=== PATIENT | female | born 1965 | race Caucasian/White ===

== ENCOUNTER → 2020-04-28 11:19 | Outpatient (CLI) | payer OTHER, SELFPAY ==
[2020-04-30 12:53] LABS: Cancer Antigen 125 24.2 U/mL (0.0-38.1)
== END ==
PROVIDERS: Visit Provider Obstetrics & Gynecology
DX: N85.8 Other specified noninflammatory disorders of uterus (principal); N85.2 Hypertrophy of uterus
CPT/HCPCS: 36415; 86304

== ENCOUNTER 2020-06-07 07:23 | Inpatient (IN) | payer SELFPAY, OTHER ==
--- NOTE | 2020-06-02 10:34 | EKG12_ITS ---
Test Reason : PREOP Blood Pressure : / mmHG Vent. Rate : 075 BPM Atrial Rate : 075 BPM P-R Int : 162 ms QRS Dur : 084 ms QT Int : 390 ms P-R-T Axes : 027 -14 033 degrees QTc Int : 435 ms Normal sinus rhythm Normal ECG Confirmed by DARIEL BOWEN ([id number]), editor farm journal BIBIANA RIVERA ([id number]) on 06/03/2020 2:37:54 PM Referred By: Blue Kirkpatrick Confirmed By:DARIEL BOWEN
[2020-06-02 10:47] LABS: Hemoglobin 14.9 g/dL (12.0-15.0); Mean Corp Hgb Conc 34.7 g/dL (32-36); Mean Corpuscular Volume 86.7 fL (81-99); Mean Platelet Vol. 9.2 fl (6.2-12.0); Platelet Count 241 K/mm3 (150-450); RBC Distribution Width CV 12.3 % (11.6-14.6); RBC Distribution Width SD 38.7 fl (35.1-43.9); Red Blood Count 4.96 M/mm3 (4.2-5.4); White Blood Count 5.9 K/mm3 (4.4-11.0)
[2020-06-02 10:57] LABS: Prothrombin Time (Protime)PT. 12.8 SECONDS (11.7-14.9)
[2020-06-02 10:58] LABS: Partial Thromboplast Time 27.4 Seconds (24.1-36.2)
[2020-06-02 11:26] LABS: AST(SGOT) 64 U/L (15-37); Alanine Aminotransfer ALT/SGPT 100 U/L (13-56); Albumin, Serum 3.8 g/dL (3.2-5.0); Alkaline Phosphatase 59 U/L (45-117); Anion Gap 3 (5-15); BUN 12 mg/dL (7-18); BUN/Creat Ratio 16.8 RATIO (10-20); Calcium,Total 9.2 mg/dL (8.5-10.1); Chloride 105 mmol/L (98-107); Creatinine, Serum 0.71 mg/dL (0.55-1.02); EST Glomerular Filtration Rate 91 mL/min (>60); Est Glom Filt Rate - Afr Amer 110 mL/min (>60); Globulin 3.9 g/dL (2.2-4.2); Glucose 112 mg/dL (74-106); Potassium 3.6 mmol/L (3.5-5.1); Protein, Total 7.7 g/dL (6.4-8.2); Sodium Level 138 mmol/L (136-145)
--- NOTE | 2020-06-06 18:37 | HP.PCM_ITS ---
History and Physical Date of Admission: 06/07/20 Surgical History and Physical Eugenia Bustos, a 54 year old female 0 0 0 0 0, presents for FRANCES/BSO on June 07, 2020 at 7:30. -- Large Symptomatic Uterine Fibroids -- Large Heterogeneous Uterus with Mass which began CT Scan 11-09-19. Eugenia claims it started gradually and has been present several months. It occurs all the time. It is located in the lower abdomen. Eugenia characterizes the quality fullness feeling. Severity is moderate and not improving. MEDICATIONS HISTORY: Patient is also takin. No Meds ALLERGIES: No Known Allergies Infections - Chicken pox and Measles Illnesses - no serious past illnesses Accidents - None Hospitalizations - surgery Review of Systems: GENERAL - Denies fever, or chills SKIN - Denies skin changes EYES - Denies visual changes EARS - Denies difficulty hearing NOSE - Denies nasal congestion or bleeding MOUTH - Denies sore throat or difficulty swallowing NECK - Denies pain or swelling RESPIRATORY - Denies shortness of breath or wheezing CARDIOVASCULAR - Denies palpitations or chest pain GASTROINTESTINAL - Denies nausea, vomiting, diarrhea, constipation GENITOURINARY - Denies dysuria, frequency of urination, incontinence of urine MUSCULOSKELETAL - Denies joint or muscle pain NEUROLOGICAL - Denies localized numbness or weakness PSYCHIATRIC - Denies depression or anxiety ENDOCRINE - Denies heat or cold intolerance, weight loss or gain HEMATO-IMMUNOLOGIC - Denies excessive bleeding with cuts SOCIAL HISTORY: Alcohol Use - None Smoking - Never Diet - no special diet Lifestyle - single Exercise - active work Seat Belt Use - most of the time Employer - [employer] Job Description - Elementary Spanish Teacher Illicit Drug Use - None Sexual Activity - sexually inactive Control - Not active FAMILY HISTORY: nc MENSTRUAL HISTORY: LMP Known?- DefiniteAmount/Duration - 6 days, Regularity - Irregular, Frequency - variable days, LMP - 03/20/20, Age Onset Menarche - 14 PAST PREGNANCIES: Total Pregnancies - 0; Full Term Pregnancies - 0; Premature - 0; Abortions, Induced - 0; Abortions, Spontaneous - 0; Ectopics - 0; Multiple Births - 0; Living Children - 0 SURGICAL HISTORY: 1. 10/20/2019 Hernia Repair ; Deangelo Tran 2. T and A, 1992 PHYSICAL EXAM BP- 126/80 Sitting, Right arm, large cuff Weight- 204.72871 lbs Height- 60 inch BMI:39.92 CONSTITUTIONAL - NAD, well nourished, and well developed SKIN - No rash, lesions, or ulcers HEENT - Normocephalic, PERRLA, EOMI NECK - No nodes, no nuchal rigidity and thyroid normal size and texture LYMPH NODES - Palpation of lymph nodes in neck and groins within normal limits LUNGS - CTA x2 without wheezes, crackles or rales CARDIAC - Regular rate and rhythm without rubs, murmurs, or gallops ABDOMEN - Without hepatosplenomegaly, distention, masses, rebound, or guarding; normal bowel sounds; no hernias and uterus to 28 week size EXTREMITIES - No edema or calf tenderness NEUROLOGICAL - Cranial nerves II-XII grossly intact PSYCHIATRIC - A and O to time, place, person, mood and affect ASSESSMENT/PLAN: 1. Hypertrophy Of Uterus, Leiomyoma Of Uterus and Unspecified Large and symptomatic. Reviewed CT scan suggesting fibroids. U/S also confirms. CA-125 OK. Discussed options and plan to proceed with FRANCES/BSO. Discussed RBAs and all questions answered. Plan midline incision thru hernia mesh.
[2020-06-07] VITALS (12 sets, daily range): BP systolic 95–151; BP diastolic 41–99; PULSE 57–85; RESP 16–20; TEMP 36.6–36.9; O2SAT 94–98; BMI 40.3
[2020-06-07] MEDS: Lactated Ringers 1,000 ML 100 ML IV ×2 (06:10→09:00)
[2020-06-07 06:12] LABS: Internal QC Validated? YES +Cl - CLEAR BKGD; Pregnancy, Urine Negative Negative
--- NOTE | 2020-06-07 07:30 | HYST_PTH ---
PATIENT: VISHNU WHITE LOC: [facility]3 U#:[id number] AGE/SX: 54/F ROOM: [facility]316 RE06/07/[address]: Dr. Blue Kirkpatrick MD : [id number] BED: 1 DIS: 06/08/2020 SPEC #: [id number] RECD: 06/07/20 09:41 STATUS: RADHA REChris #: [id number] ROBLES: 06/07/20 07:[address]: Blue Kirkpatrick DEPT: SURGICAL PATHOLOGY RECD BY: Carter Padron ENTERED: 06/07/20 10:09 SP TYPE: HYSTERECT OTHR DR: Dr. Ronald Barton MD Tissues: Uterus, NOS Procedures: Surgery Specimen Level V HEADER OPERATION: Hysterectomy, FRANCES, salpingo-oophorectomy PRE-OP DIAGNOSIS: Hypertrophy of uterus, leiomyoma of uterus TISSUE SUBMITTED: Uterus and bilateral fallopian tubes and ovaries MICROSCOPIC DIAGNOSIS Uterus, hysterectomy: Cervix - nabothian cysts. Endometrium - weakly proliferative endometrium. Myometrium - leiomyomas. Right and left ovaries - corpus luteal cyst and corpora albicantia. Right and left fallopian tubes - benign paratubal cysts. AM:dori 06/08/20 MICROSCOPIC DESCRIPTION Slides are reviewed. GROSS DESCRIPTION Received in fixative is one container labeled with the patient's name and designated uterus and bilateral fallopian tubes and ovaries. The specimen consists of a hysterectomy specimen consisting of markedly enlarged uterus with attached bilateral fallopian tubes and ovaries and also a detached portion of the lower uterus. The enlarged portion of the uterus measures 30 x 27 x 14 cm. The specimen is markedly distorted. Orientation could not be made. The detached portion of the uterus/cervix measures 4 x 2 x 2 cm. The entire specimen weighs 3850 gm. The endocervical/endometrial canal measures up to 3.5 cm in length and it is unremarkable. The endometrial cavity is compressed to one side and measures 4 cm in width and up to 4 cm in length. The endometrium is méndez, glistening and unremarkable and measures 0.1 cm in thickness. Sections of the uterine wall reveal multiple nodular masses. The largest mass is present at the fundus and measures up to 30 cm in greatest dimension. Sections of these masses reveal méndez whorled cut surfaces without areas of hemorrhage, necrosis or cystic degeneration. The uninvolved uterine wall measures up to 6 cm in thickness. Because of the distortion, right and left fallopian tubes could not be oriented. One of the fallopian tubes measures 8 cm in length and 0.5 cm in diameter. A paratubal cyst is noted measuring 1 cm in diameter. The second fallopian tube is similar appearance to first one and measures 8.5 cm in length and 0.5 cm in diameter. The fimbrial end is identified. A paratubal cyst is noted measuring 1 cm in greatest dimension. Sectioning of fallopian tubes reveal unremarkable cut surfaces. No tubo-ovarian adhesions are identified on both sides. The second soft to cystic ovary measures 4.5 x 3 x 1.5 cm and reveals a cyst filled with clear fluid measuring 2.5 cm in greatest dimension. Stone Setter Apprentice sections are submitted in 13 cassettes as follows: 1 & 2 - cervix/ lower uterine segment, 3-6 - uterine wall including endometrium, 7 - smaller nodular mass, 8 - second largest nodular mass, 9 & 10 - largest nodular mass, 11 - one fallopian tube and adjacent ovary, 12??second fallopian tube and adjacent ovary, 13 - second ovary with cyst. / CRISS:dori 06/07/20 TC:1 CPT: 63215
--- NOTE | 2020-06-07 07:30 | OP.PCM_ITS ---
Report of Operation Date of Procedure: 06/07/20 Pre-Operative Diagnosis: Large Symptomatic Uterine Fibroids Post-Operative Diagnosis: Large Symptomatic Uterine Fibroids Surgery/Procedure Performed:: Total Abdominal Hysterectomy and Bilateral Salpingo-Oophorectomy Description of Surgical Findings:: 25 cm uterus and calculated fibroid with normal-appearing fallopian tubes and ovaries. Uterus and fibroid weighed over 9 pounds. community health navigator: Delmar Bone Type of Anesthesia:: General - Endotracheal Anesthesiologist: Hannah Zazueta Specimen's removed: Uterus and bilateral fallopian tubes and ovaries Drains: Helm to straight drain Estimated Blood Loss (mL): 450 cc Fluids Replaced: Crystalloid Description of Procedure: Surgeon: Blue Kirkpatrick MD, FACOG Indications: This is a 54-year-old patient who his been having problems with lower abdominal pressure and discomfort. CT scan showed approximately a 25 to 28 cm size uterus and fibroid. Ultrasound was confirmatory. Ca-125 was normal. Given this the patient desires that we proceed with the above procedure. She has been counseled regarding the risk and indications of this procedure including the possibility of bleeding, infection, and injury to surrounding structures such as bowel bladder. All questions were answered. Procedure: Patient was taken to the operating room where after induction of general anesthesia she was prepped and draped in the usual sterile fashion. A F oley catheter was placed. The abdomen was entered through a midline incision to approximately 2 cm above the umbilicus and peritoneal cavity was entered bluntly. [place] retractor was placed. Uterus was delivered and round ligaments were identified and ligated with 0 Vicryl suture. Infundibulopelvic ligaments were ligated x2 with 0 Vicryl suture. A bladder flap was developed and progressive bites were then taken down on either side of the uterine cervix ligating each pedicle with 0 Vicryl suture. Final bites across the vaginal cuff incorporated the uterosacral ligaments into the vaginal cuff using 0 Vicryl suture and multiple [id number] sutures were placed across the vaginal cuff although it should be noted that a portion of the cervix may have remained due to the depth of the pelvis. Vaginal cuff and pelvic sidewall pedicles were oversewn where necessary to achieve hemostasis. Pelvis was copiously irrigated removing all clot. Some Pilo was placed across the pedicles to help with postoperative hemostasis due to some oozing. [place] retractor was removed and rectus abdominis muscles were reapproximated in the midline with interrupted 0 Prolene suture interrupted or [id number] due to a mesh which had been previously placed. Subcutaneous tissue was copiously irrigated with saline solution before closing with 3-0 Vicryl suture in 2 layers. 3-0 Vicryl suture subcuticular interrupted was then used followed by running 3-0 Monocryl suture to reapproximate skin edges. Steri-Strips were placed across the incision as well as a Mepilex dressing. Abdominal binder was placed. Patient tolerated the procedure well and was taken to recovery room in satisfactory condition; sponge instrument and needle counts were all reportedly correct. Estimated blood loss for the case was 450 cc. Cefotetan g IV was given prior to beginning the operative procedure. There were no apparent complications of the surgery. Specimen to pathology was uterus and bilateral fallopian tubes and ovaries. Grafts/Implants Used: No - Complications None - Admit VTE Documentation VTE Present on Admission: Yes VTE Mechan Device Prophylaxis: SCD's VTE Pharm Prophylaxis ordered?: Yes
--- NOTE | 2020-06-07 07:34 | DCINST_ITS ---
Discharge Diet: No Restrictions Discharge Activity: Return to Normal Activity - do what you feel comfortable, but do not over do it. You may climb stairs, just use caution and hold the railing., May Not Drive - for a few days or while taking narcotic pain medications., May Shower, May Take a Tub Bath May resume sexual activity in: 6 weeks - nothing in the vagina. Lifting Restrictions: 25 pounds for 6 weeks. Call your doctor if your incision/area has: Continuous Slow Oozing, Sudden Increased Bleeding, Increased Pain/ Swelling, Increased Redness, Foul Smelling Discharge Call your doctor if you observe: Fever of 101 or Higher, Inability to urinate, Inability to have a bowel movement, Using more than one pad per hour, - - Some vaginal bleeding may be noted for up to 4-8 weeks. Cleanse incision/area with: - - Let the soapy water run over your incision, rinse and pat dry. Additional Dressing/Incision Instructions:: The white strips (Steri Strips) on your incision will fall off on their own. Allergies/Adverse Reactions: Allergies No Known Allergies Allergy (Verified 06/07/20 05:56) Medications to take at Discharge Docusate Sodium [Colace] 100 mg PO BID PRN PRN #60 cap 06/07/20 Oxycodone [Oxyir] 5 mg PO Q6H PRN PRN 7 Days #20 tablet 06/07/20 The following prescriptions were given: Docusate Sodium [Colace] 100 mg PO BID PRN PRN #60 cap PRN Reason: Constipation Transmission Status: Pending to [facility] Oxycodone [Oxyir] 5 mg PO Q6H PRN PRN 7 Days #20 tablet PRN Reason: Pain Score 6-10/10 Transmission Status: Sent to [facility] Primary Care Physician: Ronald Barton MD [Primary Care Provider] - Test Results: Test results from this visit will be discussed in further detail at your follow- up appointment, if applicable. Please Follow Up With: Blue Kirkpatrick MD - [phone] When: in 2 weeks, please call to make an appointment.
[2020-06-07] MEDS: Dextrose 5%-Lactated Ringers 1,000 ML 150 ML IV ×2 (12:23→22:58)
[2020-06-07] MEDS: Ketorolac 30 MG/ML Syringe IV ×3 (12:49→23:00)
[2020-06-07] MEDS: 0.9% Saline Lock 10 ML Syringe IV (12:51)
[2020-06-07] MEDS: Enoxaparin 40 MG/0.4 ML Syringe SC (17:40)
[2020-06-08 02:27] VITALS: BP 108/58; PULSE 69; RESP 16; TEMP 36.8; O2SAT 94
[2020-06-08] MEDS: Ketorolac 10 MG Tablet PO (05:55)
[2020-06-08] MEDS: 0.9% Saline Lock 10 ML Syringe IV (05:55)
[2020-06-08] MEDS: Enoxaparin 40 MG/0.4 ML Syringe SC (05:56)
[2020-06-08 05:59] VITALS: BP 109/55; PULSE 64; RESP 16; TEMP 36.9; O2SAT 94
[2020-06-08 06:21] LABS: Hematocrit 37.2 % (37-47); Hemoglobin 12.6 g/dL (12.0-15.0); Mean Corp Hgb Conc 33.9 g/dL (32-36); Mean Corpuscular Hgb 30.3 pg (27.0-32.0); Mean Corpuscular Volume 89.4 fL (81-99); Mean Platelet Vol. 8.6 fl (6.2-12.0); Platelet Count 186 K/mm3 (150-450); RBC Distribution Width CV 13.2 % (11.6-14.6); RBC Distribution Width SD 42.5 fl (35.1-43.9); Red Blood Count 4.16 M/mm3 (4.2-5.4)
[2020-06-08 06:42] LABS: Creatinine, Serum 0.77 mg/dL (0.55-1.02); EST Glomerular Filtration Rate 83 mL/min (>60); Est Glom Filt Rate - Afr Amer 101 mL/min (>60); Estimated Creatinine Clearance 60.69 ml/min
[2020-06-08 08:07] VITALS: BP 117/61; PULSE 56; RESP 16; TEMP 36.7; O2SAT 97
--- NOTE | 2020-06-08 08:35 | PCM.PN.OB ---
Subjective: Patient without complaints. Tolerating diet well. Denies flatus. Pain very well controlled. Will to void on own. Wants to go home later today if possible. Objective: Afebrile, vital signs stable. Wound is without seepage under Mepilex dressing. Urine output excellent. Hemoglobin and creatinine okay. - Physical Exam Vitals/I&O's: Vital Signs Temp Pulse Resp BP Pulse Ox 98.1 F 56 L 16 117/61 97 06/08/20 08:07 06/08/20 08:07 06/08/20 08:07 06/08/20 08:07 06/08/20 08:07 Oxygen Flow Rate (L/min) 2 Oxygen Delivery Method Room Air Weight: 206 lb 5.643 oz Body Mass Index (BMI) 40.3 Intake and Output for Last 24 Hours 06/06/20 06/07/20 06/08/20 23:59 23:59 23:59 Intake Total 2488.33 / 2938.33 1999 / 1999 Output Total 1725 / 4425 3700 / 3700 Balance 763.33 / -1486.67 -1700 / -1700 Laboratory Results 06/08/20 06:10: WBC 9.0, RBC 4.16 L, Hgb 12.6, Hct 37.2, MCV 89.4, MCH 30.3, MCHC 33.9, RDW Std Deviation 42.5, RDW Coeff of Kathryn 13.2, Plt Count 186, MPV 8.6 06/08/20 06:10: Creatinine 0.77, Estim Creat Clear Calc 60.69, Est GFR (MDRD) Af Amer 101, Est GFR (MDRD) Non-Af 83 Current Medications Acetaminophen (Tylenol) 1,000 mg PO Q8H PRN PRN PRN Reason: Pain Score 1-3/10 or Fever Docusate Sodium (Colace) 100 mg PO BID PRN PRN PRN Reason: CONSTIPATION Enoxaparin Sodium (Lovenox) 40 mg SC BID@0600,1800 LO Last Admin: 06/08/20 05:56 Dose: 40 mg Documented by: Hydromorphone HCl (Dilaudid Inj) 0.5 - 1.5 mg IV Q3H PRN PRN PRN Reason: Pain Score 4-10/10 Hydromorphone HCl (Dilaudid Inj) 0.5 - 1.5 mg IV Q3H PRN PRN PRN Reason: Pain Score 4-10/10 Sodium Chloride () 250 mls @ 15 mls/hr IV .[id number] PRN PRN Reason: Additional IVPB Infusion Ketorolac Tromethamine (Toradol) 10 mg PO Q6H [facility] Stop: 06/12/20 11:01 Last Admin: 06/08/20 05:55 Dose: 10 mg Documented by: Ondansetron HCl (Zofran) 4 mg IV Q4H PRN PRN PRN Reason: NAUSEA Oxycodone HCl (Oxyir) 5 - 10 mg PO Q4H PRN PRN PRN Reason: Pain Score 4-10/10 Simethicone (Mylicon) 80 mg PO [facility] Last Admin: 06/08/20 08:14 Dose: 80 mg Documented by: Sodium Chloride () 10 - 40 ml IV UD PRN PRN Reason: SALINE FLUSH Last Admin: 06/08/20 05:55 Dose: 10 ml Documented by: Medical Necessity - Tobacco Use Smoking Status: Never smoker Tobacco Use: Non-smoker Assessment/Plan Doing well postoperative day #1 status post total abdominal hysterectomy and bilateral salpingo-oophorectomy. Discussed surgery at length. Will release to home later today if positive flatus. Home-going instructions given.
--- NOTE | 2020-06-08 10:20 | CASEMGMT ---
RN DONNA Face to Face with patient for initial transition planning/care coordination assessment. RN CM introduced self and role at [facility]. Patient sitting in chair, alert and oriented. Patient willing to participate in assessment and is able to answer all questions appropriately. Care providers, pharmacy, and demographics verified. Patient wishes to discharge home, denies need for home health at this time. Patient states she has no further needs or concerns at this time. CM to follow for discharge planning needs that may arise. PCP: Mick Specialists: Kaya Hobbs Pharmacy: [facility] Insurance: [employer] Prescription Benefit: none Living Will/HPOA: none LNOK: mother, sister Living Arrangements: Patient lives with mother and sister in 2 story home. Patient is independent and able to ambulate stairs. Transportation: Driving service DME/HHC: Patient denies DME or previous HHC. Disposition Plan: Patient to discharge home with family support and follow-up plans in place. Genia SWAIN, RN, CM
--- NOTE | 2020-06-08 12:23 | PHA.DC.MR ---
Pharmacy Service has performed discharge medication reconciliation for this patient. The patient's discharge medication list was reviewed for discrepancies and discrepancies were resolved. Home Medications Docusate Sodium [Colace] 100 mg PO BID PRN PRN #60 cap 06/07/20 Oxycodone [Oxyir] 5 mg PO Q6H PRN PRN 7 Days #20 tab 06/07/20
== END 2020-06-08 11:43 | disposition home or self-care (01) | DRG 743 ==
LOC: SDC 08:11 → MS3 08:11
PROVIDERS: Anesthesiology; Admitting Provider Obstetrics & Gynecology; PCP Family Medicine; Referring Provider Obstetrics & Gynecology; Visit Provider Obstetrics & Gynecology
PROC: 0UT90ZZ Resection of Uterus, Open Approach (ICD-10-PCS; CPT 58150; principal; 2020-06-07 07:10)
DX: D25.9 Leiomyoma of uterus, unspecified (principal); N83.12 Corpus luteum cyst of left ovary; N83.11 Corpus luteum cyst of right ovary; N83.292 Other ovarian cyst, left side; N83.291 Other ovarian cyst, right side; Z11.59 Encounter for screening for other viral diseases
CPT/HCPCS: 36415; 80053; 81025; 82565; 85027; 85610; 85730; 86850; 86900; 86901; 87635; 88307; 93005; 99251; G2023; J7120; A4216; G0463; J2405; U0003